=== PATIENT | female | born 1970 | race Native Hawaiian/Other Pacific Islander ===

== ENCOUNTER 2017-02-01 14:27 | Observation (INO) | payer MEDICAID ==
[2017-02-01 15:33] VITALS: BP 107/76; PULSE 19; RESP 19; TEMP 97.9; O2SAT 98
[2017-02-01 15:53] VITALS: BMI 23.1
--- NOTE | 2017-02-01 15:57 | ED PDOC ---
HPI: Back Time Seen by Provider: 02/01/17 15:38 Chief Complaint (Nursing): Back Pain Chief Complaint (Provider): Back Pain History Per: Patient History/Exam Limitations: no limitations Onset/Duration Of Symptoms: Days Current Symptoms Are (Timing): Still Present Additional Complaint(s): 46 y/o female presents to the emergency department with a complaint of a lower left-sided back pain that radiates upward x1 week. Reports pain is consistent with previous episode of ovarian cysts. Patient had 1 ovarian cyst removed on the left side. Denies dysuria, trauma, vaginal bleeding or fever. Last menstrual period is unknown. Past Medical History Reviewed: Historical Data, Nursing Documentation, Vital Signs Vital Signs: Last Vital Signs Temp 97.9 F 02/01/17 15:33 Pulse 19 L 02/01/17 15:33 Resp 19 02/01/17 15:33 BP 107/76 02/01/17 15:33 Pulse Ox 98 02/01/17 15:33 - Surgical History Other surgeries: cystectomy - Family History Family History: States: No Known Family Hx - Home Medications Home Medications: Ambulatory Orders Medication Instructions Recorded Polyethylene Glycol 3350 [Miralax] 17 gm PO DAILY PRN #30 powd.pack 02/01/17 - Allergies Allergies/Adverse Reactions: Allergies Allergy/AdvReac Type Severity Reaction Status Date / Time minocycline AdvReac ANGIOEDEMA Verified 02/01/17 15:51 Review of Systems ROS Statement: Except As Marked, All Systems Reviewed And Found Negative Constitutional: Negative for: Fever, Other (Trauma) Genitourinary Female: Negative for: Dysuria, Vaginal Bleeding Musculoskeletal: Positive for: Back Pain (Lower left-sided region that radiates up) Physical Exam - Reviewed Nursing Documentation Reviewed: Yes Vital Signs Reviewed: Yes - Physical Exam Appears: Positive for: Non-toxic, No Acute Distress Head Exam: Positive for: ATRAUMATIC, NORMOCEPHALIC Skin: Positive for: Normal Color, Warm, Dry ENT: Positive for: Normal ENT Inspection. Negative for: Pharyngeal Erythema Neck: Positive for: Normal, Supple Cardiovascular/Chest: Positive for: Regular Rate, Rhythm. Negative for: Murmur Respiratory: Positive for: Normal Breath Sounds. Negative for: Accessory Muscle Use, Respiratory Distress Gastrointestinal/Abdominal: Positive for: Normal Exam, Soft. Negative for: Tenderness Back: Positive for: Normal Inspection Extremity: Positive for: Normal ROM. Negative for: Pedal Edema Neurologic/Psych: Positive for: Alert, Oriented - Laboratory Results Result Diagrams: 02/01/17 16:00 02/01/17 16:00 - ECG O2 Sat by Pulse Oximetry: 98 (RA) Pulse Ox Interpretation: Normal Medical Decision Making Medical Decision Making: Time: 15:38 Initial impression: Back pain Initial plan: --COMP Metabolic Panel --ED Urine dipstick (POC) --ED Urine --CBC w/ differential --Urine C& S --IV INsertion --Urinalysis Stat --Pelvis Ultrasound --Revaluation Scribe Attestation: Documented by Blaire Sanchez, acting as a scribe for Dat Calderon PA-C. Provider Scribe Attestation: All medical record entries made by the Scribe were at my direction and personally dictated by me. I have reviewed the chart and agree that the record accurately reflects my personal performance of the history, physical exam, medical decision making, and the department course for this patient. I have also personally directed, reviewed, and agree with the discharge instructions and disposition. ED OBSERVATION Discharge: Yes Date of observation admission: 02/01/17 Time of observation admission: 15:51 - Observation admission statement Patient is being placed in observation because:: Need for ultrasound and lab work - Goals of Observation Goals of observation are:: Imagining results and lab results - Progress Note Progress Note: 02/01/17 1715 Patient remains stable at this time,pending U/S. Lab work reviewed, all WNL 02/01/17 19:22 Comfortable, vitals stable. U/S results reviewed HISTORY: L sided pelvic pain; hx of ovarian cysts COMPARISON: Transvaginal ultrasound performed 07/10/15 TECHNIQUE: Transvaginal pelvic ultrasound. FINDINGS: UTERUS: Measures 6.2 x 2.8 x 3.7 cm. Retroverted. Previously demonstrated fibroid is not well appreciated on the limited submitted images. ENDOMETRIUM: Measures 6 mm in diameter. CERVIX: No cervical abnormality identified. RIGHT OVARY: Measures 1.7 x 1.0 x 1.5 cm. Blood flow is demonstrated. LEFT OVARY: Not visualized. FREE FLUID: No significant free fluid noted. OTHER FINDINGS: None. IMPRESSION: The left ovary is not visualized. Previously demonstrated fibroid is not well appreciated on the limited submitted images. Otherwise unremarkable study as above. 02/01/17 20:00 Discussed with patient results of ultrasound, states she did have an ovarian cyst removed last year but not the entire ovary. Plan: CT abd/pelvis w/ IV contrast ordered. 02/01/17 21:[address] 02/01/17 23:08 CT abd/pelvis w/ IV contrast: IMPRESSION: 1. 1 CM arterial enhancing lesion in the dome of the liver. A second arterial enhancing lesion in the right lobe measures 2 CM on series 3, image 34. A third arterial enhancing lesion in the right lobe measures 19 mm on series 3, image 58. These are incompletely characterized. If indicated, these can be further evaluated with multiphasic liver CT or liver MRI or right upper quadrant sonogram. 2. Colonic constipation is present. 3. Additional incidental and/or chronic findings as described. 4. No evidence for adnexal lesion as clinically questioned. 02/01/17 23:[address] results. Instructed to f/u with PMD or GI specialist for further evaluation of liver lesions. Further states that she has not been having normal BMs over the past several days but did have a small BM yesterday which was soft. 02/01/17 23:22 Disposition - Clinical Impression Clinical Impression: Constipation, Liver lesion - Patient ED Disposition Is Patient to be Admitted: No - Disposition Disposition: Routine/Home Disposition Time: 23:10 Condition: STABLE
[2017-02-01 16:42] LABS: ALB/GLOB RATIO 1.5 (1.0-2.1); ALKALINE PHOSPHATASE 106 U/L (38-126); ALT/SGPT 26 U/L (9-52); AST/SGOT 31 U/L (14-36); BILIRUBIN,TOTAL 0.7 mg/dl (0.2-1.3); BLOOD UREA NITROGEN 16 mg/dl (7-17); CALCIUM 9.8 mg/dL (8.4-10.2); CARBON DIOXIDE 28 mmol/L (22-30); CHLORIDE 105 mmol/L (98-107); GFR AFRICAN-AMERICAN > 60; GLUCOSE,RANDOM 148 mg/dL (65-105); POTASSIUM 3.9 MMOL/L (3.6-5.0); SODIUM 144 mmol/l (132-148); TOTAL PROTEIN 7.9 G/DL (6.3-8.2)
[2017-02-01 16:48] LABS: BASO # 0.1 K/uL (0.0-0.2); BASO % 0.9 % (0.0-2.0); EOS # 0.1 K/uL (0.0-0.7); EOS % 1.7 % (0.0-4.0); HEMATOCRIT 43.3 % (34.0-47.0); LYMPH # 1.2 K/uL (1.0-4.3); LYMPH % 18.1 % (20.0-40.0); MEAN CELL VOLUME 91.7 fl (81.0-99.0); MEAN CORPUSCULAR HEMOGLOBIN 29.6 pg (27.0-31.0); MEAN CORPUSCULAR HGB CONC 32.3 g/dL (33.0-37.0); MEAN PLATELET VOLUME 8.7 fl (7.2-11.7); MONO # 0.5 K/uL (0.0-0.8); NEUT # 4.9 K/uL (1.8-7.0); NEUT % 72.3 % (50.0-75.0); RED CELL DISTRIBUTION WIDTH 13.8 % (11.5-14.5); WHITE BLOOD COUNT 6.8 K/uL (4.8-10.8)
[2017-02-01 17:05] LABS: URINE BILIRUBIN NEGATIVE (NEGATIVE); URINE BLOOD NEGATIVE (NEGATIVE); URINE COLOR YELLOW (YELLOW); URINE GLUCOSE (UA) NEG (Normal); URINE KETONE NEGATIVE (NEGATIVE); URINE LEUKOCYTE ESTERASE NEG Leu/uL (Negative); URINE PROTEIN NEGATIVE (NEGATIVE); URINE UROBILINOGEN 0.2-1.0 mg/dL (0.2-1.0); WBC URINE 1 /hpf (0-5)
--- NOTE | 2017-02-01 19:02 | US ---
HISTORY: L sided pelvic pain; hx of ovarian cysts COMPARISON: Transvaginal ultrasound performed 07/10/15 TECHNIQUE: Transvaginal pelvic ultrasound. FINDINGS: UTERUS: Measures 6.2 x 2.8 x 3.7 cm. Retroverted. Previously demonstrated fibroid is not well appreciated on the limited submitted images. ENDOMETRIUM: Measures 6 mm in diameter. CERVIX: No cervical abnormality identified. RIGHT OVARY: Measures 1.7 x 1.0 x 1.5 cm. Blood flow is demonstrated. LEFT OVARY: Not visualized. FREE FLUID: No significant free fluid noted. OTHER FINDINGS: None. IMPRESSION: The left ovary is not visualized. Previously demonstrated fibroid is not well appreciated on the limited submitted images. Otherwise unremarkable study as above.
[2017-02-01] MEDS ORDERED: Iohexol 300 100 ML IJ ONE (21:32)
[2017-02-01] MEDS ORDERED: Sodium Chloride 0.9% 50 ML IV ONE (21:32)
--- NOTE | 2017-02-01 22:59 | CT ---
EXAM: CT Abdomen and Pelvis With Intravenous Contrast CLINICAL HISTORY: 46 years old, female; Pain; Abdominal pain; Localized; Left lower quadrant (llq); Prior surgery; Surgery date: 6+ months; Surgery type: Lt ovarian complex cyst; Additional info: L sided pelvic pain; HX of l sided ovarian cyst TECHNIQUE: Axial computed tomography images of the abdomen and pelvis with intravenous contrast. This CT exam was performed using one or more of the following dose reduction techniques: automated exposure control, adjustment of the mA and/or kV according to patient size, and/or use of iterative reconstruction technique. Coronal and sagittal reformatted images were created and reviewed. CONTRAST: 90 mL of [id number] administered intravenously. COMPARISON: No relevant prior studies available. FINDINGS: Lower thorax: There are bilateral breast implants partially imaged and appeared grossly intact as visualized. There is minimal bibasilar atelectasis. ABDOMEN: Liver: 1 CM arterial enhancing lesion in the dome of the liver. A second arterial enhancing lesion in the right lobe measures 2 CM on series 3, image 34. A third arterial enhancing lesion in the right lobe measures 19 mm on series 3, image 58. These are incompletely characterized. If indicated, these can be further evaluated with multiphasic liver CT or liver MRI or right upper quadrant sonogram. 3.2 CM hemangioma in the right dome of the liver. Gallbladder and bile ducts: The gallbladder is normal. No calcified stones. No ductal dilation. Pancreas: The pancreas is normal. No ductal dilation. Spleen: The spleen is normal. Adrenals: The adrenal glands are normal. Kidneys and ureters: The kidneys are normal. No hydronephrosis. Stomach and bowel: Colonic constipation is present. Stomach is decompressed. There is no evidence of intestinal obstruction. Appendix: A normal appendix is identified. PELVIS: Bladder: The bladder is normal. Reproductive: The uterus is normal. The ovaries are normal. ABDOMEN and PELVIS: Intraperitoneal space: There is no evidence of free intraperitoneal fluid. There is no free intraperitoneal air. Bones/joints: No acute fracture. No dislocation. Soft tissues: Unremarkable. Vasculature: The aorta is normal. Lymph nodes: There is no evidence of lymphadenopathy. IMPRESSION: 1. 1 CM arterial enhancing lesion in the dome of the liver. A second arterial enhancing lesion in the right lobe measures 2 CM on series 3, image 34. A third arterial enhancing lesion in the right lobe measures 19 mm on series 3, image 58. These are incompletely characterized. If indicated, these can be further evaluated with multiphasic liver CT or liver MRI or right upper quadrant sonogram. 2. Colonic constipation is present. 3. Additional incidental and/or chronic findings as described. 4. No evidence for adnexal lesion as clinically questioned.
== END 2017-02-01 23:18 | disposition home or self-care (01) ==
LOC: H.ER 14:27 → H.EROBSV 18:25
PROVIDERS: ADMIT Emergency Medicine; ATTEND Emergency Medicine
DX: K76.89 Other specified diseases of liver (principal); R10.2 Pelvic and perineal pain; K59.00 Constipation, unspecified; Z88.3 Allergy status to other anti-infective agents

== ENCOUNTER 2019-02-11 16:09 | Emergency (ER) | payer OTHER, MEDICAID ==
[2019-02-11 16:10] VITALS: BMI 23.1
[2019-02-11 16:18] VITALS: RESP 18
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
[2019-02-11 19:36] VITALS: BP 114/74; PULSE 60; TEMP 98
[2019-02-11 19:49] VITALS: O2SAT 100
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
== END 2019-02-11 20:02 | disposition home or self-care (01) ==
LOC: H.ER 16:09
DX: S06.0X0A Concussion without loss of consciousness, initial encounter (principal); M54.2 Cervicalgia; M62.838 Other muscle spasm; V43.52XA Car driver injured in collision with other type car in traffic accident, initial encounter; Y92.410 Unspecified street and highway as the place of occurrence of the external cause; G93.0 Cerebral cysts; M50.321 Other cervical disc degeneration at C4-C5 level; E04.1 Nontoxic single thyroid nodule
CPT/HCPCS: 70450; 70486; 72125; 73030; 81025; 96372; 99284; J1885